=== PATIENT | female | born 1960 | race Caucasian/White ===

== ENCOUNTER → 2020-02-13 13:49 | Outpatient (CLI) | payer OTHER, SELFPAY ==
--- NOTE | ~2020-02-13 | MM_ITS ---
EXAMINATION: MM screening andrea BI w rachel HISTORY: Screening mammogram TECHNIQUE: Craniocaudal and mediolateral oblique 3-D tomosynthesis images were obtained and synthetic 2-D images were generated. CAD analysis was submitted and interpreted. COMPARISON: 08/11/2018, 07/22/2017, 07/11/2016 bilateral digital screening mammogram examinations BREAST PARENCHYMAL COMPOSITION: The breasts are almost entirely fatty. FINDINGS: There is no evidence of suspicious mass, calcification, or architectural distortion to sugg est malignancy in either breast. There has been no suspicious interval change. IMPRESSION: 1. No mammographic evidence of malignancy. 2. Recommend routine screening mammography in one year. BI-RADS Category 1: Negative Reviewed, dictated and finalized at location A. [facility]
== END ==
PROVIDERS: PCP Family Medicine; Visit Provider Obstetrics & Gynecology
DX: Z12.31 Encounter for screening mammogram for malignant neoplasm of breast (principal)
CPT/HCPCS: 77063; 77067

== ENCOUNTER → 2020-11-12 05:35 | Outpatient (CLI) | payer OTHER, SELFPAY ==
[2020-11-12 19:19] LABS: SARS-CoV-2 RNA PCR Negative
== END ==
PROVIDERS: PCP Family Medicine; Visit Provider Family Medicine
DX: J01.00 Acute maxillary sinusitis, unspecified (principal); Z20.822 Contact with and (suspected) exposure to COVID-19
CPT/HCPCS: C9803; U0003; U0005

== ENCOUNTER → 2021-03-25 16:05 | Outpatient (CLI) | payer OTHER, SELFPAY ==
--- NOTE | ~2021-03-25 | MM_ITS ---
EXAMINATION: MM screening andrea BI w rachel HISTORY: Screening TECHNIQUE: Craniocaudal and mediolateral oblique 3-D tomosynthesis images were obtained and synthetic 2-D images were generated. CAD analysis was submitted and interpreted. COMPARISON: Comparison to multiple prior studies sequentially, with oldest reviewed study dated 06/28. BREAST PARENCHYMAL COMPOSITION: Breast composed of scattered areas of fibroglandular density. FINDINGS: There is no evidence of suspicious mass, calcification, or architectural distortion to sugg est malignancy in either breast. There has been no suspicious interval change. IMPRESSION: 1. No mammographic evidence of malignancy. 2. Recommend routine screening mammography in one year. BI-RADS Category 1: Negative Reviewed, dictated and finalized at location A. [employer] CUTTER
== END ==
PROVIDERS: Visit Provider Obstetrics & Gynecology
DX: Z12.31 Encounter for screening mammogram for malignant neoplasm of breast (principal)
CPT/HCPCS: 77063; 77067

== ENCOUNTER 2022-01-25 00:20 | Day surgery (SDC) | payer OTHER, SELFPAY ==
[2022-01-14 13:47] VITALS: BMI 34.9
[2022-01-25 09:42] VITALS: BP 145/73; PULSE 77; RESP 18; TEMP 36.9; O2SAT 100; BMI 34.7
[2022-01-25] MEDS: LACTATED RINGERS 1,000 ML 150 ML IV CONT (09:52)
--- NOTE | 2022-01-25 10:01 | PM.HPGS ---
History of Present Illness History of Present Illness Consent: Risks, benefits, and alternatives have been discussed and questions answered. Patient agrees to proceed with procedure. Chief complaint: neoplasm screening Narrative: Peggy Osorio is a 61 year old female presents for screening colonoscopy. Patient's current weight appetite and bowel movements are normal. Patient denies abdominal pain. She has had no bleeding. Family history is noncontributory. Patient did have a prior colonoscopy 10 years ago that was unremarkable she presents today for neoplasia screening. Review of Systems Review of Systems: Review of systems noncontributory. [facility] Past Medical History Medical History Acute non-recurrent maxillary sinusitis Anxiety Atherosclerosis of coronary artery of [place] heart without angina pectoris (01/28/16) history of 3 stents 01/28/2016 BMI 34.0-34.9,adult BMI 35.0-35.9,adult BMI 36.0-36.9,adult Colon cancer screening (04/11/11) normal colonoscopy 04/11/2011 Encounter for wellness examination in adult Essential (primary) hypertension Hamstring muscle strain (11/12/21) left Hypothyroidism, unspecified TSH 2.99 with free T4 1.2 on 11/29/2021. Low back pain Mixed hyperlipidemia Cholesterol 149, HDL 58, triglycerides 109, LDL 72 on 11/29/2021. Obesity (BMI 30-39.9) Osteoarthritis involving multiple joints on both sides of body (~06/08/21) hip pain, knee pain Seasonal allergic rhinitis Vitamin D insufficiency Level low at 27 on 11/29/2021. Goal greater than 30. Surgical History Surgical History H/O section H/O heart artery stent H/O hernia repair History of appendectomy Family History Family History Mother Hypertension Family history of malignant neoplasm of ovary Social History Social History Smoking status: Never smoker Alcohol intake: current Alcohol use details: once a month Substance use: never Substance use type: does not use Living arrangements: with family Spiritual care concerns: No Meds Home Medications and Allergies Home Medications Medication Instructions Recorded Confirmed Type amlodipine 5 mg tablet 5 mg PO DAILY 06/05/19 01/14/22 History aspirin 81 mg tablet,delayed 81 mg PO DAILY 06/05/19 01/14/22 History release (Adult Low Dose Aspirin) atorvastatin 40 mg tablet 40 mg PO DAILY 06/05/19 01/14/22 History multivitamin,uy-qqaw-qqbzrioa 1 tablet PO DAILY 06/05/19 01/14/22 History (Complete Multivitamin tablet) fluticasone propionate 50 1 spray intranasal BID PRN 06/09/20 01/14/22 History mcg/actuation nasal Congestion spray,suspension calcium carbonate 600 mg calcium 600 mg PO DAILY 12/03/20 01/14/22 History (1,500 mg) tablet (Calcium) levothyroxine 50 mcg tablet 50 mcg PO DAILY #90 tabs 02/12/21 01/14/22 Rx arginine HCl (L-arginine) 1,000 mg 1,000 mg PO DAILY 12/16/21 01/14/22 History tablet cholecalciferol (vitamin D3) 50 4,000 unit PO DAILY 12/16/21 01/14/22 History mcg (2,000 unit) tablet sodium,potassium,mag sulfates 17.5 See Rx Instructions PO .COMPLEX 12/31/21 01/14/22 Rx gram-3.13 gram-1.6 gram oral soln #354 mL (Suprep Bowel Prep Kit) Allergies Allergy/AdvReac Type Severity Reaction Status Date / Time No Known Allergies Allergy Unknown Verified 01/25/22 09:41 Vital Signs Vital Signs - 24 hr 01/25/22 09:42 Temperature 98.5 F Pulse Rate 77 Respiratory Rate 18 Blood Pressure 145/73 H Pulse Oximetry 100 Oxygen Delivery Room Air Exam Narrative: Physical exam reveals patient be alert. Vital signs stable. HEENT exam is unremarkable. Patient is anicteric. Lungs are clear to auscultation and percussion. Heart is without murmur or extra sounds. Abdomen bowel az
--- NOTE | 2022-01-25 10:13 | WPDANESEPPF ---
Anes - Initial Pre Proc Eval Procedure: Operation Date: 01/25/22 10:45 Proposed Procedures p Screening Colonoscopy - Sky Peterson MD Date/Time: 01/25/22 10:13 Surgeon: Sky Peterson MD Pre Op Diagnosis: neoplasm screening Patient Data Age: 61 Gender: F Height: 1.6 m Weight: 89 kg Last Vital Signs Temp 98.5 F 01/25/22 09:42 Pulse 77 01/25/22 09:42 Resp 18 01/25/22 09:42 BP 145/73 H 01/25/22 09:42 Pulse Ox 100 01/25/22 09:42 O2 Del Method Room Air 01/25/22 09:42 Allergies Allergy/AdvReac Type Severity Reaction Status Date / Time No Known Allergies Allergy Unknown Verified 01/25/22 09:41 Home Medications Medication Instructions Recorded Confirmed Type amlodipine 5 mg tablet 5 mg PO DAILY 06/05/19 01/14/22 History aspirin 81 mg tablet,delayed 81 mg PO DAILY 06/05/19 01/14/22 History release (Adult Low Dose Aspirin) atorvastatin 40 mg tablet 40 mg PO DAILY 06/05/19 01/14/22 History multivitamin,qr-uwhi-elgmucto 1 tablet PO DAILY 06/05/19 01/14/22 History (Complete Multivitamin tablet) fluticasone propionate 50 1 spray intranasal BID PRN 06/09/20 01/14/22 History mcg/actuation nasal Congestion spray,suspension calcium carbonate 600 mg calcium 600 mg PO DAILY 12/03/20 01/14/22 History (1,500 mg) tablet (Calcium) levothyroxine 50 mcg tablet 50 mcg PO DAILY #90 tabs 02/12/21 01/14/22 Rx arginine HCl (L-arginine) 1,000 mg 1,000 mg PO DAILY 12/16/21 01/14/22 History tablet cholecalciferol (vitamin D3) 50 4,000 unit PO DAILY 12/16/21 01/14/22 History mcg (2,000 unit) tablet sodium,potassium,mag sulfates 17.5 See Rx Instructions PO .COMPLEX 12/31/21 01/14/22 Rx gram-3.13 gram-1.6 gram oral soln #354 mL (Suprep Bowel Prep Kit) Patient hx anesthesia problems: none Family hx anesthesia problems: none Results Review: All pre-operative results and documents have been reviewed as part of the pre-operative evaluation. [facility] Past Medical History Medical History Acute non-recurrent maxillary sinusitis Anxiety Atherosclerosis of coronary artery of [place] heart without angina pectoris (01/28/16) history of 3 stents 01/28/2016 BMI 34.0-34.9,adult BMI 35.0-35.9,adult BMI 36.0-36.9,adult Colon cancer screening (04/11/11) normal colonoscopy 04/11/2011 Encounter for wellness examination in adult Essential (primary) hypertension Hamstring muscle strain (11/12/21) left Hypothyroidism, unspecified TSH 2.99 with free T4 1.2 on 11/29/2021. Low back pain Mixed hyperlipidemia Cholesterol 149, HDL 58, triglycerides 109, LDL 72 on 11/29/2021. Obesity (BMI 30-39.9) Osteoarthritis involving multiple joints on both sides of body (~06/08/21) hip pain, knee pain Seasonal allergic rhinitis Vitamin D insufficiency Level low at 27 on 11/29/2021. Goal greater than 30. Surgical History Surgical History H/O section H/O heart artery stent H/O hernia repair History of appendectomy Family History Family History Mother Hypertension Family history of malignant neoplasm of ovary Social History Social History Smoking status: Never smoker Alcohol intake: current Alcohol use details: once a month Substance use: never Substance use type: does not use Living arrangements: with family Spiritual care concerns: No Anes - Eval Final PreProcedure Day of Procedure 01/25/22 10:13 Patient weight: obese Heart: regular rate and rhythm Lungs: clear to auscultation Airway: Mallampati scale class II Neurological: alert and oriented Last oral intake: >/= 8 hours ASA classification: III Emergent: no Anesthetic plan: proceed Anesthesia type and monitoring: general GIVS and standard monitoring Results Review: All pre-operat
[2022-01-25 10:48] VITALS: BP 117/70; PULSE 76; RESP 17; O2SAT 97
[2022-01-25 10:58] VITALS: BP 128/68; PULSE 71; RESP 19; O2SAT 100
[2022-01-25 11:08] VITALS: BP 133/77; PULSE 66; RESP 14; O2SAT 100
== END 2022-01-25 11:13 | disposition home or self-care (01) ==
PROVIDERS: PCP Family Medicine; Visit Provider Internal Medicine Gastroenterology
PROC: 0DJD8ZZ Inspection of Lower Intestinal Tract, Via Natural or Artificial Opening Endoscopic (ICD-10-PCS; CPT 45378; principal; 2022-01-25 10:45)
DX: Z12.11 Encounter for screening for malignant neoplasm of colon (principal); K64.8 Other hemorrhoids; K57.30 Diverticulosis of large intestine without perforation or abscess without bleeding; E78.2 Mixed hyperlipidemia; I10 Essential (primary) hypertension; E03.9 Hypothyroidism, unspecified; E55.9 Vitamin D deficiency, unspecified; E66.9 Obesity, unspecified; Z68.34 Body mass index [BMI] 34.0-34.9, adult; I25.10 Atherosclerotic heart disease of native coronary artery without angina pectoris; Z95.5 Presence of coronary angioplasty implant and graft; Z79.82 Long term (current) use of aspirin
CPT/HCPCS: 45378; J2704; J7120

== ENCOUNTER 2022-06-06 01:03 | Day surgery (SDC) | payer SELFPAY ==
[2022-05-31 12:09] VITALS: BMI 35.4
[2022-06-06 06:30] VITALS: BP 159/69; PULSE 88; RESP 18; TEMP 36.1; O2SAT 98
[2022-06-06] MEDS: LACTATED RINGERS 1,000 ML 150 ML IV CONT (06:37)
--- NOTE | 2022-06-06 07:05 | WPDANESEPPF ---
Anes - Initial Pre Proc Eval Procedure: Operation Date: 06/06/22 07:30 Proposed Procedures p Colonoscopy - Sky Peterson MD Date/Time: 06/06/22 07:05 Surgeon: Sky Peterson MD Pre Op Diagnosis: colon polyp Patient Data Age: 62 Gender: F Height: 1.6 m Weight: 89.4 kg Last Vital Signs Temp 36.1 C L 06/06/22 06:30 Pulse 88 06/06/22 06:30 Resp 18 06/06/22 06:30 BP 159/69 H 06/06/22 06:30 Pulse Ox 98 06/06/22 06:30 O2 Del Method Room Air 06/06/22 06:30 Allergies Allergy/AdvReac Type Severity Reaction Status Date / Time No Known Allergies Allergy Unknown Verified 06/06/22 06:27 Home Medications Medication Instructions Recorded Confirmed Type amlodipine 5 mg tablet 5 mg PO DAILY 06/05/19 05/31/22 History aspirin 81 mg tablet,delayed 81 mg PO DAILY 06/05/19 05/31/22 History release (Adult Low Dose Aspirin) atorvastatin 40 mg tablet 40 mg PO DAILY 06/05/19 05/31/22 History multivitamin,[id number]-eynp-xgrflceo 1 tablet PO DAILY 06/05/19 05/31/22 History (Complete Multivitamin tablet) fluticasone propionate 50 1 spray intranasal BID PRN 06/09/20 05/31/22 History mcg/actuation nasal Congestion spray,suspension calcium carbonate 600 mg calcium 600 mg PO DAILY 12/03/20 05/31/22 History (1,500 mg) tablet (Calcium) arginine HCl (L-arginine) 1,000 mg 1,000 mg PO DAILY 12/16/21 05/31/22 History tablet cholecalciferol (vitamin D3) 50 4,000 unit PO DAILY 12/16/21 05/31/22 History mcg (2,000 unit) tablet levothyroxine 50 mcg tablet 50 mcg PO DAILY #90 tabs 03/15/22 05/31/22 Rx Patient hx anesthesia problems: none Family hx anesthesia problems: none Results Review: All pre-operative results and documents have been reviewed as part of the pre-operative evaluation. [facility] Past Medical History Medical History (Updated 01/25/22 @ 13:17 by Cordell Ritchie MD) Acute non-recurrent maxillary sinusitis Anxiety Atherosclerosis of coronary artery of [place] heart without angina pectoris (01/28/16) history of 3 stents 01/28/2016 BMI 34.0-34.9,adult BMI 35.0-35.9,adult BMI 36.0-36.9,adult Colon cancer screening (04/11/11) normal colonoscopy 04/11/2011. normal colonoscopy 01/25/2022 with recheck in 10 years. Encounter for wellness examination in adult Essential (primary) hypertension Hamstring muscle strain (11/12/21) left Hypothyroidism, unspecified TSH 2.99 with free T4 1.2 on 11/29/2021. Low back pain Mixed hyperlipidemia Cholesterol 149, HDL 58, triglycerides 109, LDL 72 on 11/29/2021. Obesity (BMI 30-39.9) Osteoarthritis involving multiple joints on both sides of body (~06/08/21) hip pain, knee pain Seasonal allergic rhinitis Vitamin D insufficiency Level low at 27 on 11/29/2021. Goal greater than 30. Surgical History Surgical History H/O section H/O heart artery stent H/O hernia repair History of appendectomy Family History Family History Mother Hypertension Family history of malignant neoplasm of ovary Social History Social History Smoking status: Never smoker Alcohol intake: current Alcohol use details: once a month Substance use: never Substance use type: does not use Living arrangements: with family Spiritual care concerns: No Anes - Eval Final PreProcedure Day of Procedure 06/06/22 07:05 Patient weight: obese Heart: regular rate and rhythm Lungs: clear to auscultation Airway: Mallampati scale class II Neurological: alert and oriented Last oral intake: >/= 8 hours ASA classification: III Emergent: no Anesthetic plan: proceed Anesthesia type and monitoring: general GIVS and standard monitoring Results Review: All pre-operative results and documents have been reviewed as part of the pre-operative evaluation. Informed Consent: The patient's
--- NOTE | 2022-06-06 08:13 | PM.HPGS ---
History of Present Illness History of Present Illness Consent: Risks, benefits, and alternatives have been discussed and questions answered. Patient agrees to proceed with procedure. Chief complaint: colon polyp Narrative: Peggy Osorio is a 62 year old female Presents for colonoscopy patient had previous colonoscopy with question of a polyp in the his cecal or ascending colon. Patient feels good. She has no abdominal pain bowel habits are normal. She has no bleeding. Family history noncontributory. She presents today for colonoscopy to evaluate this abnormality. Review of Systems Review of Systems: Review of systems noncontributory. [facility] Past Medical History Medical History (Updated 01/25/22 @ 13:17 by Cordell Ritchie MD) Acute non-recurrent maxillary sinusitis Anxiety Atherosclerosis of coronary artery of [place] heart without angina pectoris (01/28/16) history of 3 stents 01/28/2016 BMI 34.0-34.9,adult BMI 35.0-35.9,adult BMI 36.0-36.9,adult Colon cancer screening (04/11/11) normal colonoscopy 04/11/2011. normal colonoscopy 01/25/2022 with recheck in 10 years. Encounter for wellness examination in adult Essential (primary) hypertension Hamstring muscle strain (11/12/21) left Hypothyroidism, unspecified TSH 2.99 with free T4 1.2 on 11/29/2021. Low back pain Mixed hyperlipidemia Cholesterol 149, HDL 58, triglycerides 109, LDL 72 on 11/29/2021. Obesity (BMI 30-39.9) Osteoarthritis involving multiple joints on both sides of body (~06/08/21) hip pain, knee pain Seasonal allergic rhinitis Vitamin D insufficiency Level low at 27 on 11/29/2021. Goal greater than 30. Surgical History Surgical History H/O section H/O heart artery stent H/O hernia repair History of appendectomy Family History Family History Mother Hypertension Family history of malignant neoplasm of ovary Social History Social History Smoking status: Never smoker Alcohol intake: current Alcohol use details: once a month Substance use: never Substance use type: does not use Living arrangements: with family Spiritual care concerns: No Meds Home Medications and Allergies Home Medications Medication Instructions Recorded Confirmed Type amlodipine 5 mg tablet 5 mg PO DAILY 06/05/19 05/31/22 History aspirin 81 mg tablet,delayed 81 mg PO DAILY 06/05/19 05/31/22 History release (Adult Low Dose Aspirin) atorvastatin 40 mg tablet 40 mg PO DAILY 06/05/19 05/31/22 History multivitamin,[id number]-ejrg-[id number] 1 tablet PO DAILY 06/05/19 05/31/22 History (Complete Multivitamin tablet) fluticasone propionate 50 1 spray intranasal BID PRN 06/09/20 05/31/22 History mcg/actuation nasal Congestion spray,suspension calcium carbonate 600 mg calcium 600 mg PO DAILY 12/03/20 05/31/22 History (1,500 mg) tablet (Calcium) arginine HCl (L-arginine) 1,000 mg 1,000 mg PO DAILY 12/16/21 05/31/22 History tablet cholecalciferol (vitamin D3) 50 4,000 unit PO DAILY 12/16/21 05/31/22 History mcg (2,000 unit) tablet levothyroxine 50 mcg tablet 50 mcg PO DAILY #90 tabs 03/15/22 05/31/22 Rx Allergies Allergy/AdvReac Type Severity Reaction Status Date / Time No Known Allergies Allergy Unknown Verified 06/06/22 06:27 Vital Signs Vital Signs - 24 hr 06/06/22 06:30 Temperature 97 F L Pulse Rate 88 Respiratory Rate 18 Blood Pressure 159/69 H Pulse Oximetry 98 Oxygen Delivery Room Air Exam Narrative: Physical exam reveals patient to be alert. Vital signs stable. HEENT exam is unremarkable. Patient is anicteric. Lungs are clear to auscultation and percussion. Heart is without murmur or extra sounds. Abdomen bowel sounds are present soft nontender with no organomegaly. Digital external rectal exam is normal. Assessment and
[2022-06-06 08:14] VITALS: BP 120/67; PULSE 78; RESP 24; O2SAT 99
[2022-06-06 08:24] VITALS: BP 116/72; PULSE 74; RESP 20; O2SAT 100
[2022-06-06 08:34] VITALS: BP 123/69; PULSE 70; RESP 18; O2SAT 100
== END 2022-06-06 08:40 | disposition home or self-care (01) ==
PROVIDERS: PCP Family Medicine; Visit Provider Internal Medicine Gastroenterology
PROC: 0DJD8ZZ Inspection of Lower Intestinal Tract, Via Natural or Artificial Opening Endoscopic (ICD-10-PCS; CPT 45378; principal; 2022-06-06 07:30)
DX: Z12.11 Encounter for screening for malignant neoplasm of colon (principal); D12.2 Benign neoplasm of ascending colon; K57.30 Diverticulosis of large intestine without perforation or abscess without bleeding; K64.8 Other hemorrhoids; I25.10 Atherosclerotic heart disease of native coronary artery without angina pectoris; I10 Essential (primary) hypertension; E03.9 Hypothyroidism, unspecified; E78.2 Mixed hyperlipidemia; E55.9 Vitamin D deficiency, unspecified; M19.90 Unspecified osteoarthritis, unspecified site; F41.9 Anxiety disorder, unspecified; Z79.82 Long term (current) use of aspirin; Z95.5 Presence of coronary angioplasty implant and graft; E66.9 Obesity, unspecified; Z68.34 Body mass index [BMI] 34.0-34.9, adult
CPT/HCPCS: 45385; 88305; J2704; J7120

== ENCOUNTER → 2022-07-05 16:20 | Outpatient (CLI) | payer OTHER, SELFPAY ==
--- NOTE | ~2022-07-05 | MM_ITS ---
EXAMINATION: MM screening andrea BI w rachel HISTORY: Screening mammogram TECHNIQUE: Craniocaudal and mediolateral oblique 3-D tomosynthesis images were obtained and synthetic 2-D images were generated. CAD analysis was submitted and interpreted. COMPARISON: 03/25/2021, 02/13/2020, 08/11/2018 bilateral screening mammogram examinations BREAST PARENCHYMAL COMPOSITION: The breasts are almost entirely fatty. FINDINGS: There is no evidence of suspicious mass, calcification, or architectural distortion to sugg est malignancy in either breast. There has been no suspicious interval change. IMPRESSION: 1. No mammographic evidence of malignancy. 2. Recommend routine screening mammography in one year. BI-RADS Category 1: Negative Reviewed, dictated and finalized at location A.
== END ==
PROVIDERS: PCP Family Medicine; Visit Provider Obstetrics & Gynecology
DX: Z12.31 Encounter for screening mammogram for malignant neoplasm of breast (principal)
CPT/HCPCS: 77063; 77067

== ENCOUNTER 2023-08-01 16:17 | Outpatient (CLI) | payer OTHER, SELFPAY ==
--- NOTE | ~2023-08-01 | MM_ITS ---
EXAMINATION: MM screening andrea BI w rachel HISTORY: Screening TECHNIQUE: Craniocaudal and mediolateral oblique 3-D tomosynthesis images were obtained and synthetic 2-D images were generated. CAD analysis was submitted and interpreted. COMPARISON: Comparison to multiple prior studies sequentially, with oldest reviewed study dated 03/2016. BREAST PARENCHYMAL COMPOSITION: The breasts are almost entirely fatty. FINDINGS: There is no evidence of suspicious mass, calcification, or architectural distortion to sugg est malignancy in either breast. There has been no suspicious interval change. IMPRESSION: 1. No mammographic evidence of malignancy. 2. Recommend routine screening mammography in one year. BI-RADS Category 1: Negative Reviewed, dictated and finalized at location A.
== END 2023-08-01 16:18 ==
PROVIDERS: PCP Obstetrics & Gynecology; Visit Provider Obstetrics & Gynecology
DX: Z12.31 Encounter for screening mammogram for malignant neoplasm of breast (principal)
CPT/HCPCS: 77063; 77067

== ENCOUNTER 2024-08-02 07:24 | Outpatient (CLI) | payer OTHER, SELFPAY ==
--- NOTE | ~2024-08-02 | MM_ITS ---
EXAMINATION: MM screening andrea BI w rachel HISTORY: Screening TECHNIQUE: Craniocaudal and mediolateral oblique 3-D tomosynthesis images were obtained and synthetic 2-D images were generated. CAD analysis was submitted and interpreted. COMPARISON: Comparison to multiple prior studies sequentially, with oldest reviewed study dated 07/22. BREAST PARENCHYMAL COMPOSITION: Not Dense. The breasts are almost entirely fatty. FINDINGS: There is no evidence of suspicious mass, calcification, or architectural distortion to sugg est malignancy in either breast. There has been no suspicious interval change. IMPRESSION: 1. No mammographic evidence of malignancy. 2. Recommend routine screening mammography in one year. BI-RADS Category 1: Negative Reviewed, dictated and finalized at location []
== END 2024-08-02 07:25 | disposition home or self-care (01) ==
LOC: MICIMG 07:24
PROVIDERS: PCP Family Medicine; Visit Provider Obstetrics & Gynecology
DX: Z12.31 Encounter for screening mammogram for malignant neoplasm of breast (principal)
CPT/HCPCS: 77063; 77067